=== PATIENT | female | born 1965 | race Caucasian/White ===

== ENCOUNTER 2019-05-17 07:58 | Emergency (ER) | payer OTHER ==
[~2019-05-17] VITALS: Ht 172.7 cm; Wt 62.6 kg
--- NOTE | ~2019-05-17 | EKG ---
[place], [place] ELECTROCARDIOGRAM REPORT NAME: CARMEN GARG UNIT #: [id number] ROOM: DOCTOR: EPIPHANY DRAFT REPORT BIRTHDATE: [birth year] [facility] Test Date: 2019-05-17 Test Time: 08:29:26 Pat Name: CARMEN GARG Department: Room: Gender: F Transit Worker: Carmen Echols : 1965 Requested By: RADHA CELESTE Order Number: [id number] Reading MD: Zak Oneill MD Measurements Intervals [place] Rate: 54 P: 51 FL: 172 QRS: 54 QRSD: 104 T: 35 QT: 427 QTc: 405 Interpretive Statements Sinus rhythm Low voltage, precordial leads No previous ECG available for comparison Electronically Signed On 05-17-2019 12:23:20 PDT by Zak Oneill MD CM:EKGRPT:ELECTROCARDIOGRAM REPORT [id number] RADHA OLIVAS DRAFT REPORT RADHA CELESTE MD
[~2019-05-17 07:58] MED LIST: ACETAMINOPHEN-H1 TA2 PO; AVPAK AZITHROM250 M1 PO; AZO-SULFISOXAZO1 TA1 PO; BIOTIN1000 MCG PO; CABERGOLINE0.5 MG PO; CELEXA40 MG PO; CHLORDIAZEPOXID25 MG PO; CIPRO500 MG PO; CLEOCIN150 MG PO; CRANBERRY405 MG PO; CYMBALTA20 MG PO; CYMBALTA60 MG PO; FLUTICASON0.05 MG/AC NAS; Flagyl500 M1 PO; LINZESS145 MC1 PO; LOPERAMIDE2 MG PO; MELOXICAM15 MG PO; METHOCARBAMOL750 M1 PO; MIRALAX POWDER17 G1 PO; NEURONTIN300 MG PO; ONDANSETRON HYDR4 M1 PO; POTASSIUM20 MEQ PO; PREMPRO 0.625 M1 TAB PO; PRILOSEC20 M1 PO; TOBRADEX 0.1%-0.5 ML OPH; VISTARIL25 MG PO; VITAMIN B-11 TAB PO; VITAMIN D5000 I2 PO; ZITHROMAX Z PA250 MG PO; ZOFRAN4 MG PO; [UNRECOGNIZED DRUG - OTHER] PO
[2019-05-17 08:00] VITALS: BP 188/94
[2019-05-17 08:33] LABS: BASO % 0.3 % (0.0-1.0); EOS # 0.2 10*3/uL (0.0-0.4); EOS % 2.8 % (1.0-4.0); HEMATOCRIT 41.8 % (37.0-47.0); HEMOGLOBIN 13.5 g/dl (12.0-16.0); LYMPH # 1.2 10*3/uL (1.3-4.4); LYMPH % 19.2 % (27.0-41.0); MEAN CELL VOLUME 93.9 fl (81.0-99.0); MEAN CORPUSCULAR HGB 30.3 pg (27.0-31.0); MEAN CORPUSCULAR HGB CONC 32.3 g/dl (33.0-37.0); MEAN PLATELET VOLUME 10.9 fl (9.6-12.3); MONO # 0.5 10*3/uL (0.1-1.0); MONO % 8.1 % (3.0-9.0); NEUT # 4.4 10*3/uL (2.3-7.9); NEUT % 69.3 % (47.0-73.0); PLATELET COUNT AUTOMATED 175 10*3/uL (130-400); RED BLOOD COUNT 4.45 10*6/uL (4.10-5.10); WHITE BLOOD COUNT 6.4 10*3/uL (4.8-10.8)
[2019-05-17 08:49] LABS: BUN 12 mg/dl (7-24); CHLORIDE 102 mmol/L (98-107); POTASSIUM 3.7 mmol/L (3.5-5.1); SODIUM 138 mmol/L (136-145)
[2019-05-17 08:51] LABS: TROPONIN I < 0.015 ng/ml (<0.045)
[2019-05-17 08:55] LABS: ACT PARTIAL THROMBO TIME 26.1 SECONDS (20.0-32.1); INTERNATIONAL NORM RATIO 0.9 (2.0-3.5)
== END 2019-05-17 09:33 | disposition home or self-care (01) ==
LOC: ED 07:58
PROVIDERS: Emergency Medicine
DX: R07.89 Other chest pain (principal); R07.81 Pleurodynia; I10 Essential (primary) hypertension; Z79.899 Other long term (current) drug therapy; Z88.0 Allergy status to penicillin; Z88.2 Allergy status to sulfonamides; Z88.6 Allergy status to analgesic agent; Z88.8 Allergy status to other drugs, medicaments and biological substances; X58.XXXA Exposure to other specified factors, initial encounter; Y93.89 Activity, other specified; Y92.89 Other specified places as the place of occurrence of the external cause; Y99.8 Other external cause status

== ENCOUNTER 2020-07-18 08:45 | Emergency (ER) | payer OTHER ==
[~2020-07-18] VITALS: Ht 172.7 cm; Wt 65.8 kg
[2020-07-18 08:50] VITALS: BP 167/80
[2020-07-18] MEDS ORDERED: NORCO 5-325 TA1 EACH PO (11:32)
== END 2020-07-18 11:36 | disposition home or self-care (01) ==
LOC: ED 08:45
DX: S52.202A Unspecified fracture of shaft of left ulna, initial encounter for closed fracture (principal); Z88.6 Allergy status to analgesic agent; Z88.0 Allergy status to penicillin; Z88.2 Allergy status to sulfonamides; W01.0XXA Fall on same level from slipping, tripping and stumbling without subsequent striking against object, initial encounter; Y93.89 Activity, other specified; Y92.89 Other specified places as the place of occurrence of the external cause; Y99.8 Other external cause status